=== PATIENT | female | born 1975 | race Caucasian/White ===

== ENCOUNTER 2017-10-22 21:03 | Emergency (ER) | payer BC ==
[2017-10-22 21:08] VITALS: BP 124/88; PULSE 117; TEMP 98; BMI 21.7
--- NOTE | 2017-10-22 21:15 | PDOC ---
History of Present Illness - General History Source: Patient Exam Limitations: No Limitations - History of Present Illness Initial Comments: 10/22/17 21:40 The patient is a 42 year old female (non-smoker), with a significant past medical history of asthma (diagnosed at 9 years old, no past intubations or hospitalizations), who presents to the emergency department with, shortness of breath beginning approx. 2 weeks ago. The patient reports she is unable to expand her lungs fully with inspiration due to a mucus-like feeling. The patient reports associated symptoms of dry cough and a left shoulder pain described as a dull ache that radiates down her left arm. She reports the left shoulder pain is unaffected by movement. The patient reports she flies frequently and reports flying approx. four times last week. However, she reports the flights are fairly short. The patient reports using her inhaler with albuterol approx. 4 hours ago with mild relief. The patient also reports she visited the hospital yesterday for a chest x-ray and states the results were normal. The patient reports she also had a d-dimer performed that was 450. The patient reports using Mucinex with minor relief prior to arrival. The patient denies thromboembolic disease, denies recent surgery or malignancy, denies history of estrogen supplementation. She denies recent fevers, chills, headache or dizziness. She denies recent nausea, vomit, diarrhea or constipation. She denies recent dysuria, frequency, urgency or hematuria. She denies recent chest pain. Allergies: amoxicillin <Figueroa Oh - Last Filed: 10/22/17 21:52> <Arabella Christianson - Last Filed: 10/23/17 06:53> - General Chief Complaint: Asthma Stated Complaint: SOB Time Seen by Provider: 10/22/17 21:12 Past History <Figueroa Oh - Last Filed: 10/22/17 21:52> - Past Medical History Asthma: Yes COPD: No - Suicide/Smoking/Psychosocial Hx Smoking Status: No Smoking History: Never smoked Have you smoked in the past 12 months: No Number of Cigarettes Smoked Daily: 0 Information on smoking cessation initiated: No Hx Alcohol Use: No Drug/Substance Use Hx: No Substance Use Type: None <Arabella Christianson - Last Filed: 10/23/17 06:53> - Past Medical History Allergies/Adverse Reactions: Allergies Allergy/AdvReac Type Severity Reaction Status Date / Time amoxicillin [Amoxicillin] Allergy Verified 03/15/13 04:45 Home Medications: Ambulatory Orders Advair 100Mcg/50Mcg 03/15/13 Proventil Hfa 03/15/13 Albuterol 1 gm MC 07/25/14 Multivitamin [Multi Vitamin Daily] 1 each PO tablet 07/25/14 [place]-3/Dha/Epa/Fish Oil [Epa-Dha 720 Softgel] 1 each PO capsule 07/25/14 Review of Systems - Review of Systems Comments:: 10/22/17 21:42 CONSTITUTIONAL: Absent: fever, no chills, no fatigue EYES: Absent: visual changes ENT: Absent: ear pain, no sore throat CARDIOVASCULAR: Absent: chest pain, no palpitations RESPIRATORY: Present: +Dry cough. +SOB GI: Absent: abdominal pain, no nausea, no vomiting, no constipation, no diarrhea GENITOURINARY: Absent: dysuria, no frequency, no hematuria MUSKULOSKELETAL: Present: +Left shoulder pain. Absent: back pain, no arthralgia, SKIN: Absent: rash NEURO: Absent: headache <Figueroa Oh - Last Filed: 10/22/17 21:52> *Physical Exam - Vital Signs Last Vital Signs Temp Pulse Resp BP Pulse Ox 98 F 117 H 14 124/88 99 10/22/17 21:06 10/22/17 21:06 10/22/17 21:06 10/22/17 21:06 10/22/17 21:06 - Physical Exam Comments: 10/22/17 21:43 GENERAL: The patient is awake, alert, and fully oriented, in no acute distress. HEAD: Normal with no signs of trauma. EYES: Pupils equal, round and reactive to light, extraocular movements intact, sclera anicteric, conjunctiva clear with no pallor. ENT: Ears normal, nares patent, oropharynx clear without exudates. Moist mucous membranes. NECK: Normal range of motion, supple without lymphadenopathy, JVD, or masses. LUNGS: Breath sounds equal, clear to auscultation bilaterally. No wheeze/ crackles. HEART: Regular rate and rhythm, normal S1 and S2 without murmur or rub. ABDOMEN: Soft/nontender/nondistended. BS wnl. No guarding or rebound. No palpable masses. No hepatosplenomegaly. EXTREMITIES: Normal range of motion, no edema. No clubbing or cyanosis. No cords, erythema, or tenderness. NEUROLOGICAL: Cranial nerves II through XII grossly intact. Normal speech, normal gait. PSYCH: Normal mood, normal affect. SKIN: Warm, Dry, normal turgor, no rashes or lesions noted. <Figueroa Oh - Last Filed: 10/22/17 21:52> - Vital Signs Last Vital Signs Temp Pulse Resp BP Pulse Ox 98 F 117 H 14 124/88 99 10/22/17 21:06 10/22/17 21:06 10/22/17 21:06 10/22/17 21:06 10/22/17 21:06 <Arabella Christianson - Last Filed: 10/23/17 06:53> ED Treatment Course - LABORATORY CBC & Chemistry Diagram: 10/22/17 22:00 10/22/17 22:00 <Arabella Christianson - Last Filed: 10/23/17 06:53> Progress Note - Progress Note Progress Note: Workup essentially is normal except for d-dimer 475 CT angiogram of the chest performed. This is normal without evidence of pulmonary embolus/aneurysm or other acute abnormality. <Arabella Christianson - Last Filed: 10/23/17 06:53> *DC/Admit/Observation/Transfer - Attestations Scribe Attestion: 10/22/17 21:43 Documentation prepared by Figueroa Oh, acting as medical affairs director for Arabella Christianson MD. <Figueroa Oh - Last Filed: 10/22/17 21:52> <Arabella Christianson - Last Filed: 10/23/17 06:53> Diagnosis at time of Disposition: Dyspnea Qualifiers: Dyspnea type: unspecified Qualified Code(s): R06.00 - Dyspnea, unspecified - Discharge Dispostion Disposition: HOME Condition at time of disposition: Stable - Patient Instructions Printed Discharge Instructions: DI for Shortness of Breath Additional Instructions: Follow-up with marketing program manager on Friday, October 24 as scheduled Return to ER if you have any severe symptoms
[2017-10-22 22:10] LABS: BASO % 1.7 % (0-2.0); EOS % 4.2 % (0-4.5); HEMATOCRIT 42.9 % (32.4-45.2); HEMOGLOBIN 14.2 GM/dl (10.7-15.3); LYMPH % 39.5 % (8-40); MCH 30.7 pg (25.7-33.7); MCHC 33.1 g/dl (32.0-36.0); MEAN CELL VOLUME 92.6 fl (80-96); MEAN PLT VOLUME 8.8 fl (7.5-11.1); MONO % 8.8 % (3.8-10.2); NEUT % 45.8 % (42.8-82.8); PLATELET COUNT 331 K/MM3 (134-434); RBC 4.63 M/mm3 (3.60-5.2); RDW 12.3 % (11.6-15.6); WHITE BLOOD COUNT 8.6 K/mm3 (4.0-10.8)
[2017-10-22 22:24] LABS: PH,URINE 5.5 (4.5-8); URINE APPEARANCE Clear; URINE BILIRUBIN Negative (NEGATIVE); URINE BLOOD 2+ (NEGATIVE); URINE COLOR YELLOW; URINE GLUCOSE (UA) Negative (NEGATIVE); URINE KETONE 1+ (NEGATIVE); URINE NITRITE Negative (NEGATIVE); URINE PROTEIN Trace (NEGATIVE); URINE UROBILINOGEN 0.2 (0.2-1.0)
[2017-10-22 22:25] LABS: HCG,QUALITATIVE URINE NEGATIVE
[2017-10-22 22:31] LABS: ALBUMIN 4.4 g/dl (3.5-5.0); ALK PHOS 33 U/L (32-92); ANION GAP 10 (8-16); BILIRUBIN,TOTAL 0.5 mg/dl (0.2-1.0); BLOOD UREA NITROGEN 15 mg/dl (7-18); CALCIUM 9.3 mg/dl (8.4-10.2); CHLORIDE 104 mmol/L (98-107); CO2 24 mmol/L (22-28); CREATININE 0.9 mg/dl (0.6-1.3); GLUCOSE,RANDOM 93 mg/dl (74-106); POTASSIUM 3.4 mmol/L (3.5-5.1); SGOT/AST 19 U/L (10-42); SGPT/ALT 15 U/L (10-40); SODIUM 138 mmol/L (136-145); TOT PROT 7.1 g/dl (6.4-8.3)
[2017-10-22 22:50] LABS: TROPONIN I (DFP) < 0.03 ng/ml (0.03-0.50)
[2017-10-22 22:54] LABS: EPI CELLS FEW /HPF; URINE BACTERIA MODERATE /hpf (NEGATIVE)
[2017-10-22 22:54] LABS: INR 1.04 (0.82-1.09); PROTHROMBIN TIME (PATIENT) 11.6 SEC (10.2-13.0)
--- NOTE | 2017-10-23 17:40 | EKG ---
Test Reason : Blood Pressure : / mmHG Vent. Rate : 102 BPM Atrial Rate : 102 BPM P-R Int : 132 ms QRS Dur : 074 ms QT Int : 352 ms P-R-T Axes : 076 077 062 degrees QTc Int : 458 ms SINUS TACHYCARDIA POSSIBLE LEFT ATRIAL ENLARGEMENT NO PREVIOUS ECGS AVAILABLE Confirmed by MD MARY ELLEN, RUTHIE ([id number]) on 10/23/2017 5:40:26 PM Referred By: MD JAIN Confirmed By:RUTHIE HYDE MD
== END 2017-10-23 01:40 | disposition home or self-care (01) ==
LOC: FER 21:03
DX: R06.00 Dyspnea, unspecified (principal); J45.909 Unspecified asthma, uncomplicated
CPT/HCPCS: 36415; 71275-TC; 80053; 81003; 81015; 82550; 84484; 84703; 85025; 85379; 85610; 85651; 86140; 93005; 99283-25